=== PATIENT | male | born 1945 | race African-American/Black ===

== ENCOUNTER → 2016-08-20 | Outpatient (CLI) | payer MEDICARE ==
[~2016-08-20] MED LIST: IOHEXOL 240 MG/ML 50ML VIAL. PO ONE; IOHEXOL 300 MG/ML 75 ML VIAL IV ONE
--- NOTE | 2016-08-20 14:15 | RAD ---
Indication: Abdominal pain with nausea and vomiting. Axial imaging through the abdomen and pelvis was performed without contrast. No prior studies are available for comparison. The lung bases are clear. No discrete liver mass is detected. The gallbladder is unremarkable. The pancreas and spleen are unremarkable. No adrenal mass is identified. The kidneys are unremarkable apart from a small cortical low density in the upper pole right kidney suggestive of a cyst. The aorta is normal caliber. There are some markedly dilated and fluid-filled small bowel loops throughout the abdomen with air-fluid levels. There does appear to be a component of malrotation with multiple jejunal loops in the right abdomen. There appears to be a transition zone in the right lower quadrant with normal caliber loop present. The appendix is unremarkable. No free air is detected. No free fluid or fluid collection is detected. There is moderate stool identified in the colon and rectum. Impression: Dilated and fluid-filled small bowel loops throughout the abdomen with transition zone in the right lower quadrant consistent with small bowel obstruction. No free air or abscess formation is identified. PQRS Compliance Statement: One or more of the following individualized dose reduction techniques were utilized for this examination: 1. Automated exposure control 2. Adjustment of the mA and/or kV according to patient size 3. Use of iterative reconstruction technique
== END | disposition home or self-care (01) ==
LOC: CT 12:02
PROVIDERS: ATTEND Internal Medicine
DX: K56.69 Other intestinal obstruction (principal); I10 Essential (primary) hypertension; E78.5 Hyperlipidemia, unspecified; Q43.3 Congenital malformations of intestinal fixation; R73.09 Other abnormal glucose
CPT/HCPCS: 74176; Q9966